=== PATIENT | female | born 1970 | race Caucasian/White ===

== ENCOUNTER 2016-06-23 05:59 | Day surgery (SDC) | payer SELFPAY ==
[2016-06-14 12:51] VITALS: BMI 31.8
[2016-06-23] MEDS ORDERED: ceFAZolin SODIUM 1 GM VIAL ONE (07:13)
[2016-06-23] MEDS ORDERED: MIDAZOLAM HCL 2 MG/2 ML SINGLE DOSE VIAL ONE (07:14)
[2016-06-23] MEDS ORDERED: PROPOFOL 20 ML ONE ×5 (07:14→10:53)
[2016-06-23] MEDS ORDERED: SUCCINYLCHOLINE CHLORIDE 200 MG/10 ML VIAL ONE (07:14)
[2016-06-23] MEDS ORDERED: DEXAMETHASONE SOD PHOSPHATE 4 MG/1 ML VIAL ONE (07:15)
[2016-06-23] MEDS ORDERED: ONDANSETRON 4 MG/2 ML VIAL ONE ×2 (07:15→13:49)
[2016-06-23] MEDS ORDERED: LIDOCAINE HCL/PF 2% SDV 5ML VIAL ONE (07:15)
[2016-06-23] MEDS ORDERED: LIDOCAINE HCL 2% JELLY (5 ML/TUBE) ONE (07:15)
[2016-06-23] MEDS ORDERED: ROCURONIUM BROMIDE 50 MG/5 ML VIAL ONE ×2 (07:17→08:33)
[2016-06-23] MEDS ORDERED: LIDOCAINE HCL 1%, 10 MG/ML (20ML VIAL) ONE (07:26)
[2016-06-23] MEDS ORDERED: EPINEPHrine/PF 1 MG/1 ML (1:1,000) AMPULE ONE (07:27)
[2016-06-23] MEDS ORDERED: GUM MASTIC/STORAX/MSAL/ALCOHOL 1 DRP DROPSBTL MC ONE (07:27)
[2016-06-23] MEDS ORDERED: BACITRACIN 30 GM TUBE TOPICAL OINTMENT ONE (07:27)
[2016-06-23] MEDS ORDERED: LIDOCAINE 1%-EPI 1:100,000 30 ML MDV IJ ONE (07:27)
[2016-06-23] MEDS ORDERED: DESFLURANE GAS 240 ML BOTTLE IH ONE (08:14)
[2016-06-23] MEDS ORDERED: LIDOCAINE 1%/EPI 1:100000 (20 ML MULTI DOSE VIAL) INF ONE (08:37)
[2016-06-23] MEDS ORDERED: ACETAMINOPHEN 325 MG TABLET (FP) PO PRN (13:15)
[2016-06-23] MEDS ORDERED: OXYCODONE/APAP 5/325MG COMBO TABLET PO PRN ×2 (13:15)
[2016-06-23] MEDS ORDERED: diazePAM 5 MG TABLET PO PRN (13:15)
[2016-06-23] MEDS ORDERED: ONDANSETRON 4 MG/2 ML VIAL IVPB PRN (13:15)
[2016-06-23] MEDS ORDERED: LACTATED RINGERS SOLUTION 1,000 ML IV SCH (13:15)
--- NOTE | 2016-06-23 13:32 | OP ---
Operative Note - Note: Operative Date: 06/23/16 Pre-Operative Diagnosis: unsatisfactory apperance of abdomen and breast Operation: Liposuctionof flanks and abdomen with mastopexy and abdominoplasty Findings: Ptosis of breast with excess abdominal fat and skin Implants: none Post-Operative Diagnosis: Same as Pre-op Surgeon: Eron Ramos Hybrid Tester: Charlette Langston Anesthesiologist/PRODUCT DEVELOPMENT ENGINEER: Alfredo Escoto Anesthesia: MAC Specimens Removed: skin from abdomen, and breast, adipose tissue abdomen and flanks. Estimated Blood Loss (mls): 20 Drains & Tubes with Location: 2 blakes to lower abdomen Operative Report Dictated: Yes
[2016-06-23] MEDS ORDERED: ONDANSETRON 4 MG/2 ML VIAL IVPUSH ONE (13:55)
[2016-06-23] MEDS: HYDROmorphone HCL CARPU-JECT 1 MG/1 ML DISP.SYRIN IVPB PRN ×2 (13:55→19:38)
[2016-06-23] MEDS ORDERED: oxyCODONE HCL 5 MG TABLET PO PRN (14:00)
[2016-06-23] MEDS ORDERED: PROMETHAZINE HCL 25 MG/1 ML VIAL IVPUSH ONE (14:45)
[2016-06-23] MEDS ORDERED: PROMETHAZINE HCL 25 MG/1 ML VIAL ONE (14:48)
[2016-06-23] MEDS: oxyCODONE HCL 5 MG TABLET PO PRN (16:16)
[2016-06-23] MEDS: CEFAZOLIN 1 GM/D5W 50 ML IVPB SCH (18:24)
[2016-06-23] MEDS ORDERED: ATORVASTATIN CA 10 MG TABLET (FP) PO SCH (22:00)
[2016-06-24] MEDS: CEFAZOLIN 1 GM/D5W 50 ML IVPB SCH (01:18)
[2016-06-24] MEDS: oxyCODONE HCL 5 MG TABLET PO PRN ×2 (01:22→11:29)
[2016-06-24] MEDS: HYDROmorphone HCL CARPU-JECT 1 MG/1 ML DISP.SYRIN IVPB PRN ×2 (03:23→08:11)
[2016-06-24 06:26] VITALS: TEMP 98.4
[2016-06-24 09:40] VITALS: BP 109/57; PULSE 56
[2016-06-24] MEDS ORDERED: HYDROCHLOROTHIAZIDE 25 MG TABLET (FP) PO SCH (10:00)
[2016-06-24] MEDS ORDERED: PATIENT'S OWN MEDICATION (NON-FORMULARY) (Simvastatin [Simvastatin] 10 MG) PO SCH (10:00)
--- NOTE | 2016-06-24 11:29 | PN ---
Progress Note (short form) - Note Progress Note: 46F POD1 s/p abdominoplasty under GA-ETT doing well. Pt states that pain is fairly well controlled, and reports no anesthetic complications. AVSS. Tolerating po, continue oral pain medication as needed.
--- NOTE | 2016-07-07 11:18 | PATH ---
Surgical Pathology Report Patient Name: RAYRAY YEAGER [facility]. Rec. #: [id number] /Age/Gender: 1970 (Age: 46) / F Account: [id number] Location: [facility] Taken: 06/23/2016 Received: 06/23/2016 Reported: 07/01/2016 Physicians: Eron Stevens M.D. Specimen(s) Received ABDOMINAL SKIN AND FAT Clinical History Cosmetic Final Diagnosis ABDOMINAL SKIN AND FAT FROM ABDOMINOPLASTY: SKIN AND ADIPOSE TISSUE, DESCRIBED (GROSS EXAMINATION ONLY). Electronically Signed Lenora Chatterjee M.D. Gross Description Received in formalin labeled "abdominal skin and fat," is a 2370 g, 45.0 x 21.0 x 3.5 cm kaur, butterfly-shaped, unoriented portion of unremarkable skin with underlying soft tissue. Sectioning reveals unremarkable yellow, lobulated adipose tissue. No lesions are identified. No sections are submitted, gross only. /06/24/2016 saudi06/24/2016
== END 2016-06-24 12:43 | disposition home or self-care (01) ==
LOC: FASU 05:59 → FM/S 15:55 → FASU 06-24 12:43
PROVIDERS: ATTEND Plastic Surgery
PROC: 0J080ZZ Alteration of Abdomen Subcutaneous Tissue and Fascia, Open Approach (ICD-10-PCS; principal; 2016-06-23 08:39)
PROC: 0H0V0ZZ Alteration of Bilateral Breast, Open Approach (ICD-10-PCS; 2016-06-23 08:39)
PROC: 0J083ZZ Alteration of Abdomen Subcutaneous Tissue and Fascia, Percutaneous Approach (ICD-10-PCS; 2016-06-23 08:39)
DX: Z41.1 Encounter for cosmetic surgery (principal); N64.81 Ptosis of breast
CPT/HCPCS: 84703; 88300-TC; 94760